=== PATIENT | female | born 1995 | race Caucasian/White ===

== ENCOUNTER 2024-02-22 13:11 | Outpatient (AMB) | payer OTHER, SELFPAY ==
--- NOTE | 2024-02-22 14:07 | MHC.OFFWIV ---
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 Patient Tobacco Use Status: Never used Tobacco Allergies Penicillins Adverse Reaction (Severe, Verified 02/22/24 14:09) Anaphylaxis Do you need a note to return to daycare/school/sports/work: Yes HPI HPI Comments History of Present Illness Details History of Present Illness - The patient is a 28-year-old female presenting with back pain. - Onset of pain approximately one week ago with worsening severity noted today. - Pain is sharp and shooting, localized to the left [id number] back, exacerbated by movement, particularly when walking or incorrect arm movement. - Pain does not radiate to the buttocks or hips - Has a history of scoliosis and previous similar severe pain attributed to a pinched nerve during adolescence. - Current self-management includes Tylenol, topical agents, and heat application with partial, temporary relief. - No prior use of naproxen and denies urinary symptoms or other systemic issues aside from back pain. - Denies loss of control of bladder or bowels Physical Exam General: Cooperative, healthy appearing, comfortable, no acute distress and well developed Orientation: Patient oriented x3 Limitations: No limitations Head: Normal to inspection Ears: Hearing grossly normal bilaterally Nose: Normal Nxternal nose present Face and sinus: ormal facial exam Eyes: Appearance normal, both eyes and all related structures Neck: Normal visual inspection and Yes full ROM Respiratory: Normal respiratory effort and able to speak in complete sentences. Skin: No rashes or lesions noted Neuro: Patient oriented x3 Extremities: Normal to inspection [facility] Social History Patient Tobacco Use Status: Never used Tobacco Review of Systems Const All systems reviewed & are unremarkable except as noted in HPI and below Physical Exam Vital Signs: Last Vital Signs Pulse 85 02/22/24 14:08 BP 122/80 02/22/24 14:08 Pulse Ox 100 02/22/24 14:08 Oxygen Delivery Method Room Air 02/22/24 14:08 BMI result Body Mass Index 30.0 General: Yes no CVA tenderness Back/Spine/Pelvis Back: no CVA tenderness and back tenderness (left sided lumbar) Cervical Spine: No Cervical spine tenderness Thoracic/Lumbar Spine: thoracic and lumbar spine normal to inspection, No mass, No thoracic spinal tenderness and No lumbar spinal tenderness Assessment & Plan Assessment & Plan (1) Low back sprain: Code(s): S33.5XXA - Sprain of ligaments of lumbar spine, initial encounter Qualifiers: Encounter type: initial encounter Qualified Code(s): S33.5XXA - Sprain of ligaments of lumbar spine, initial encounter Plan: Plan The primary intervention for the patient's acute back pain, potentially related to scoliosis, involves managing inflammation and discomfort. Naproxen 500 mg is prescribed every 12 hours to address inflammation, and cyclobenzaprine 5 mg is advised at bedtime to alleviate muscle tension, with caution regarding drowsiness during the day. The patient is encouraged to continue using topical analgesics and heat or ice for symptomatic relief. Advised to monitor the symptoms closely, consulting the primary care provider if there is no improvement or worsening in pain for further evaluation, possibly involving imaging or physical therapy. Patient was informed and verbally consented to the use of an ambient scribe for clinic note documentation during this visit. Medications: New naproxen 500 mg PO Q12H PRN 20 tabs 0RF pain cyclobenzaprine 5 mg PO Q8H PRN 10 tabs 0RF Muscle Spasm Coding Level of Care Code New Pt Level 3 (50127) Diagnoses Sprain of low back, initial encounter S33.5XXA Encounter type: initial encounter
[2024-02-22 14:08] VITALS: BP 122/80; PULSE 85; O2SAT 100
--- OUTSIDE RECORDS SUMMARY | 2024-02-22 14:45 | XMS_ITS | Data Portability ---
Author Organization [facility] EZEKI[facility], [facility] Address [address] [place] [id number] Assessment No assessment recorded. Plan of Treatment Reminders Order Date Submit Date Provider Last Modified By Organization Details Last Modified Time Details Appointments None recorded. Lab None recorded. Referral None recorded. Procedures None recorded. Surgeries None recorded. Imaging None recorded. Medication Orders cyclobenza swapna 10 mg tablet 2018 019 INTERFACE [facility], [address] [place], [address], 9 13:36:09 montelukas t 10 mg tablet 2018 019 INTERFACE [facility], [address] [place], [address], 9 13:36:10 sumatripta n 50 mg tablet 2018 019 [email or web address] [facility], [address] [place], [address], 9 13:46:48 cyclobenza swapna 10 mg tablet 2018 019 INTERFACE [facility], [address] [place], [address], 9 14:01:51 montelukas t 10 mg tablet 2018 019 INTERFACE [facility], [address] [place], [address], 9 14:01:52 cyclobenza swapna 10 mg tablet 2019 020 INTERFACE [facility], [address] [place], [address], 0 14:46:04 montelukas t 10 mg tablet 2019 020 INTERFACE [facility], [address] [place] [place], [address], 0 14:46:05 rizatripta n 10 mg disintegra ting tablet 2019 020 INTERFACE [facility], [address] [place], [address], 0 14:46:04 Patient TargetsNo targets recorded. Patient InstructionsNo instructions recorded. Reason for Referral None Reported. Problems No Known Problems Procedures Surgical History Date Name Laterality Status Provider Name and Address Organization Details Recorded Time procedure on appendix completed Gaye ROMO [facility] 08/20/2018 13:26:07 Tonsillectomy completed Gaye ROMO [facility] 08/20/2018 13:26:15 [facility] of wisdom tooth [facility] 08/20/2018 13:36:30 Imaging Results None recorded. Procedure Notes None recorded. Medical Equipment None Reported. Allergies No known drug allergies Medications Name Sig Start Date Stop Date Status Note LastModified by Organization Details LastModified Time cyclobenzap rine 10 mg tablet Take 1 tablet every day by oral route at bedtime for 30 days. 2019 active Not Available Not Available Not Avai lable azithromyci n 250 mg tablet active Not Available Not Available Not Available sumatriptan 50 mg tablet Take 1 tablet p.o. Q headache onset may repeat x1 if no response in 2 hours no more than 2 tablets a day. active Not Available Not Available No t Available levonorgest rel 0.15 mg-ethinyl estradiol 0.03 mg tablet active Not Available Not Available Not Available ondansetron 8 mg disintegrat ing tablet active Not Available Not Available N ot Available amitriptyli ne 10 mg tablet active Not Available Not Available Not Available rizatriptan 10 mg disintegrat ing tablet This all 1 tab under tongue at headache onset may repeat x1 if no response in 2 hours no more than 2 tablets per day 2019 active Not Available Not Available Not Avai lable montelukast 10 mg tablet Take 1 tablet every day by oral route at bedtime for 30 days. 2019 active Not Available Not Available Not Avai lable ergocalcife rol (vitamin D2) 1,250 mcg (50,000 unit) capsule active Not Available Not Available Not Available azelastine 137 mcg (0.1 %) nasal spray active Not Available Not Available Not Available fluticasone propionate 50 mcg/actuati on nasal spray,suspe nsion active Not Available Not Available Not Available Vitamin D 04/08 completed Not Available Not Available Not Available Excedrin Migraine as needed active Not Available Not Available N ot Available multivitami n daily active Not Available Not Available Not Available ProAir HFA 90 mcg/actuati on aerosol inhaler active Not Available Not Available Not Available [facility] Allergy 30 mg/5 mL oral suspension active Not Available Not Available N ot Available PreTAB 29 mg-1 mg tablet active Not Available Not Available Not Available Vitals Date Recorded Body height Body mass index (BMI) Body weight Heart rate Oxygen saturation Oxygen saturation in Arterial blood by Pulse oximetry Systolic blood pressure Diastolic blood pressure Provider Name and Address Organization Details Last Updated DateTime 9 165.1 cm 21.6 kg/m2 01060.0 1 g 112 /min 100 % 100 % 136 mm[Hg] 82 mm[Hg] Gaye FALCON [facility] 9 13:21:55 Date Recorded Body height Body mass index (BMI) Body weight Heart rate Respiratory rate Oxygen saturation Oxygen saturation in Arterial blood by Pulse oximetry Systolic blood pressure Diastolic blood pressure Provider Name and Address Organization Details Last Updated DateTime 9 165.1 cm 23.8 kg/m2 20627.7 1 g 113 /min 10 /min 100 % 100 % 134 mm[Hg] 88 mm[Hg] Shannan Eliud [facility] 9 13:46:28 Date Recorded Body height Body mass index (BMI) Body weight Heart rate Respiratory rate Oxygen saturation Oxygen saturation in Arterial blood by Pulse oximetry Systolic blood pressure Diastolic blood pressure Provider Name and Address Organization Details Last Updated DateTime 0 165.1 cm 26.3 kg/m2 18495.3 1 g 99 /min 10 /min 99 % 99 % 137 mm[Hg] 85 mm[Hg] Sh[facility]anmika [facility] 0 14:22:40 Social History Question Answer Notes LastModified by Organizat ion Details LastModified Time Tobacco Smoking Status Never Smoker [facility] 08/20/2018 13:25:43 Accident Related Injury No [email or web address] Information not available 04/08/2019 What Is Your Level Of Alcohol Consumption? None [email or web address] Information not available 08/20/2018 Are You Blind Or Do You Have Difficulty Seeing? No Information not available 04/08/2019 How Much Tobacco Do You Chew? None [email or web address] Information not available 08/20/2018 Are You Currently Employed? No [email or web address] Information not available 08/20/2018 Are You Deaf Or Do You Have Serious Difficulty Hearing? No [email or web address] Information not available 04/08/2019 Do You Or Have You Ever Used E-cigarettes Or Vape? Never Used Electronic Cigarettes [email or web address] Information not available 04/08/2019 Education 2 Year College Informatio n not available 08/20/2018 Which Of Your Hands Is Dominant? Right Information not available 04/08/2019 Live Alone Or With Others? With Others [email or web address] Information not available 08/20/2018 What Was The Date Of Your Most Recent Tobacco Screening? 08/20/2018 Information not available 09/12/2018 How Many Children Do You Have? 0 [email or web address] Information not available 08/20/2018 At What Age Did You Start Smoking Tobacco? 0 [email or web address] Information not available 04/08/2019 Do You Or Have You Ever Used Smokeless Tobacco? Never Used Smokeless Tobacco [email or web address] Information not available 04/08/2019 How Many Years Have You Smoked Tobacco? 0 [email or web address] Information not available 04/08/2019 Sex: Unknown Functional Status Question Answer Note LastModified by Organization D etails LastModified Time Do you have difficulty walking or climbing stairs? No [email or web address] Information not available 04/08/2019 Do you have difficulty doing errands alone? No [email or web address] Information not available 04/08/2019 Are you able to care for yourself? Yes Information n ot available 08/20/2018 Do you have difficulty dressing or bathing? No [email or web address] Information not available 04/08/2019 Mental Status Question Answer Note LastModified by Organization D etails LastModified Time Do you have difficulty concentrating, remembering or making decisions? No [email or web address] Information no t available 04/08/2019 Family History Relationship Description Onset Age of this Age Resolved Age Notes LastModified by Organization Details LastModified Time Mother History of hypertension [email or web address] Not available 03/2018 13:24:15 Mother Family history of stroke [email or web address] Not available 2018 13:25:05 Maternal Grandmother Family history of malignant neoplasm [email or web address] Not available 2018 13:24:33 Maternal Grandfather Diabetes mellitus [email or web address] Not available 2018 13:24:51 Brother Migraine [email or web address] Not availab le 08/20/2018 13:25:18 Medical History Condition Response Headaches/Migraines Y Gynecological HistoryNo gynecological history recorded. Obstetrics History GPAL:G 0 P 0 0 0 0 Past Encounters Encounter ID Performer Location Encounter Start Date Encounter Closed Date Diagnosis/Indication Diagnosis SNOMED-CT Code Diagnosis ICD10 Code [id number] [facility] [address] [place] [id number] 08/20/2018 13:08:57 08/20/2018 14:08:16 Migraine variants 267999811 G43.809 [id number] MD [facility] [address] [place] [id number] 1 10/08/2018 13:32:24 10/08/2018 14:00:26 Migraine variants [id number] G43.809 [id number] MD [facility] [address] [place] [address] [place] [address] 04/08/2019 14:08:38 04/08/2019 16:26:52 Migraine variants [id number] G43.809 Health Concerns Section Related Observation LastModified by Organization Detai ls LastModified Time None Recorded Concern Status LastModified by Organization Details LastModified Time None Recorded Advance Directives Directive None Recorded Payers Encounter Date Sequence Insurance Name Policy Number Policy Harry Covered Member ID Harry Member ID Guarantor Name 08/20/2018 1 [place] - DOS PRIOR TO 2024 - [employer] () Milly Gillian [id number] Milly Gillian 10/08/2018 1 [employer] - DOS PRIOR TO 2024 - [employer] () Milly Gillian [id number] Milly Gillian 04/08/2019 1 [place] - DOS PRIOR TO 2024 - [employer] () Milly Gillian [id number] Milly Gillian Notes Date Note Type Note Provider Name and Address Organization Details Recorded Time 08/20/2018 text/html Patient is a lucila y pleasant 22-year-old right-handed woman with history of vitamin-D deficiency and migraines presents for evaluation. Patient had migraine headaches which started about 2-3 years ago. They went through appear to remission for 1-2 years and recently 2 months ago they became more apparent. Her typical headache as a right eye periorbital stabbing headache which begins with a pressure headache and visual abnormalities. It can last up to 24 hours and associated with unilateral photophobia phonophobia and avoidance of activity. She was recently placed on amitriptyline 10 at night which decreased the headache frequency from every other day to 2-3 times weekly. She has never been tried on Imitrex therapy for abortivetherapy. She does not plan to become and she is on oral contraceptive tablets. SERVANDO QUEZADA MD [address] [place], [address], [facility] 08/20/2018 13:40:05 10/08/2018 text/html Since last visit the patient has improved in regard to her cluster variant migraines. She was down to 2 headaches over the past 6 weeks but ran out of her medications 5 days due to a pharmacy issue. After 5 days she had a severe headache and had to restart the medications. She had an adverse event of sumatriptan where she developed significant anxiety or chest tightness. We discussed these issues.14 point review of system was performed and all negative except which was described in HPI. SERVANDO QUEZADA MD [address] [place], [address], [facility] 10/08/2018 14:02:07 04/08/2019 text/html Patient since [facility] visit has noted improvement in the frequency still at 2-3 times monthly. This is better than 2-3 times weekly. Unfortunately when she has the headache it causes severe discomfort and is incapacitating. As result we talked about focusing on abortive therapy. Patient does not plan become .14 point review of system was performed and all negative except which was described in HPI. SERVANDO QUEZADA MD [address] [place], [address], [facility] 04/08/2019 15:44:05 OBGyn Episode No OBEpisode recorded.
== END 2024-02-22 14:19 | disposition home or self-care (01) ==
PROVIDERS: Visit Provider Physician Assistant
DX: S33.5XXA Sprain of ligaments of lumbar spine, initial encounter (principal)

== ENCOUNTER → 2024-02-22 13:11 | Outpatient (BNVA) | payer OTHER, SELFPAY | PROVIDERS: Visit Provider Physician Assistant | DX: S33.5XXA Sprain of ligaments of lumbar spine, initial encounter (principal) | CPT/HCPCS: 99202 ==

== ENCOUNTER 2024-03-03 07:14 | Inpatient (IN) | payer OTHER, SELFPAY ==
--- OUTSIDE RECORDS SUMMARY | 2024-03-03 07:17 | XMS_ITS | Data Portability ---
Author Organization [facility] Address [address] [place] [id number] Assessment No assessment recorded. Plan of Treatment Reminders Order Date Submit Date Provider Last Modified By Organization Details Last Modified Time Details Appointments None recorded. Lab None recorded. Referral None recorded. Procedures None recorded. Surgeries None recorded. Imaging None recorded. Medication Orders cyclobenza swapna 10 mg tablet 2018 019 INTERFACE [facility], [address] [place], [address], 9 13:36:09 montelukas t 10 mg tablet 2018 019 INTERFACE [facility], [address] [place], [address], 9 13:36:10 sumatripta n 50 mg tablet 2018 019 [facility], [address] [place], [address], 9 13:46:48 cyclobenza swapna 10 mg tablet 2018 019 INTERFACE [facility], [address] [place], [address], 9 14:01:51 montelukas t 10 mg tablet 2018 019 INTERFACE [facility], [address] [place], [address], 9 14:01:52 cyclobenza swapna 10 mg tablet 2019 020 INTERFACE [facility], [address] [place] [place], [address], 0 14:46:04 montelukas t 10 mg tablet 2019 020 INTERFACE [facility], [address] [place] [place], [address], 0 14:46:05 rizatripta n 10 mg disintegra ting tablet 2019 020 INTERFACE [facility], [address] [place], [address], 0 14:46:04 Patient TargetsNo targets recorded. Patient InstructionsNo instructions recorded. Reason for Referral None Reported. Problems No Known Problems Procedures Surgical History Date Name Laterality Status Provider Name and Address Organization Details Recorded Time procedure on appendix completed Gaye ROMO [facility]ZE[facility] 08/20/2018 13:26:07 Tonsillectomy completed Gaye ROMO [facility] 08/20/2018 13:26:15 extraction of wisdom tooth [facility] 08/20/2018 13:36:30 Imaging Results [...] Updated DateTime 9 165.1 cm 21.6 kg/m2 07012.0 1 g 112 /min 100 % 100 % 136 mm[Hg] 82 mm[Hg] Gaye FALCON [facility] 9 13:21:55 Date Recorded Body height Body mass index (BMI) Body weight Heart rate Respiratory rate Oxygen saturation Oxygen saturation in Arterial blood by Pulse oximetry Systolic blood pressure Diastolic blood pressure Provider Name and Address Organization Details Last Updated DateTime 9 165.1 cm 23.8 kg/m2 59159.7 1 g 113 /min 10 /min 100 [...] Updated DateTime 0 165.1 cm 26.3 kg/m2 30621.3 1 g 99 /min 10 /min 99 % 99 % 137 mm[Hg] 85 mm[Hg] Shann[facility]ika [facility] 0 14:22:40 Social History Question Answer Notes LastModified by Organizat ion Details LastModified Time Tobacco Smoking Status Never Smoker [facility] 08/20/2018 13:25:43 Accident Related Injury No [email or web address] Information not available 04/08/2019 What Is Your Level Of Alcohol Consumption? None [email or web address] Information not available 08/20/2018 Are You Blind Or Do You Have Difficulty Seeing? No Information not available 04/08/2019 How Much Tobacco Do You Chew? None [email or web address] Information not available 08/20/2018 Are You Currently Employed? No [email or web address] Information not available 08/20/2018 Are You Deaf Or Do You Have Serious Difficulty Hearing? No [email or web address] Information not available 04/08/2019 Do You Or Have You Ever Used E-cigarettes Or Vape? Never Used Electronic Cigarettes [email or web address] Information not available 04/08/2019 Education 2 Year College [email or web address] Informatio n not available 08/20/2018 Which Of Your Hands Is Dominant? Right [email or web address] Information not available 04/08/2019 Live Alone Or With Others? With Others [email or web address] Information not available 08/20/2018 What Was The Date Of Your Most Recent Tobacco Screening? 08/20/2018 Information not available 09/12/2018 How Many Children Do You Have? 0 [email or web address] Information not available 08/20/2018 At What Age Did You Start Smoking Tobacco? 0 [email or web address] Information not available 04/08/2019 Do You Or Have You Ever Used Smokeless Tobacco? Never Used Smokeless Tobacco [email or web address] Information not available 04/08/2019 How Many Years Have You Smoked Tobacco? 0 Information not available 04/08/2019 Sex: Unknown Functional Status Question Answer Note LastModified by Organization D etails LastModified Time Do you have difficulty walking or climbing stairs? No [email or web address] Information not available 04/08/2019 Do you have difficulty doing errands alone? No [email or web address] Information not available 04/08/2019 Are you able to care for yourself? Yes Information n ot available 08/20/2018 Do you have difficulty dressing or bathing? No Information not available 04/08/2019 Mental Status Question Answer Note LastModified by Organization D etails LastModified Time Do you have difficulty concentrating, remembering or making decisions? No [email or web address] Information no t available 04/08/2019 Family History Relationship Description Onset Age of this Age Resolved Age Notes LastModified by Organization Details LastModified Time Mother History of hypertension [email or web address] Not available 03/2018 13:24:15 Mother Family history of stroke [email or web address] Not available 2018 13:25:05 Maternal Grandmother Family history of malignant neoplasm [email or web address] Not available 2018 13:24:33 Maternal Grandfather Diabetes mellitus [email or web address] Not available 2018 13:24:51 Brother Migraine [email or web address] Not availab le 08/20/2018 13:25:18 Medical History Condition Response Headaches/Migraines Y Gynecological HistoryNo gynecological history recorded. Obstetrics History GPAL:G 0 P 0 0 0 0 Past Encounters Encounter ID Performer Location Encounter Start Date Encounter Closed Date Diagnosis/Indication Diagnosis SNOMED-CT Code Diagnosis ICD10 Code Diagnosis Note [id number] MD [facility] [address] [id number] 08/20/2018 13:08:57 08/20/2018 14:08:16 Migraine variants [id number] G43.809 Patient is a very pleasant 22-year-ol d right-hand ed woman with history of vitamin-D deficiency and migraines presents for evaluation . The patient appears to have cluster variant migraines. There has been an increase in intensity over the past 2 months. We discussed the pathophysi ology of migraines. At this juncture we will stop amitriptyl ine due to his associatio n with weight gain and start cyclobenza swapna and Singulair at night for prophylaxi s. For abortive therapy will start sumatripta n. Side effects discussed. We will see the patient back in 6 weeks and if there is not a therapeuti c response she will need neuro imaging. This was discussed with the patient as well as her who accompanie d her. 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 The patient appears to have cluster variant migraines. There has been an increase in intensity over the past 2 months. Since last visit the patient has had a positive therapeuti c response and is doing much better with a combinatio n of Singulair and cyclobenza swapna. She is to maintain these medication s for about 6 weeks when she is headache-f ree she can attempt to stop 1. She should wait 2 weeks and if no increased frequency of migraines and stop the other 1. She should follow up in 6 months but she is totally improved she can cancel that appointmen t. 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 The patient appears to have cluster variant migraines. There has been an increase in intensity over the past 2 months. Since last visit the patient has had a positive therapeuti c response and is doing much better with a combinatio n of Singulair and cyclobenza swapna. She is down to 3 2-3 headaches a month however they are debilitati ng. Sumatripta n cause severe vaso constricti on therefore will try rizatripta n and give her some samples of the new abortive calcitonin gene related peptide hormone as well as Cambia. We will see her back in 6 months. Health Concerns Section Related Observation LastModified by Organization Detai ls LastModified Time None Recorded Concern Status LastModified by Organization Details LastModified Time None Recorded Advance Directives Directive None Recorded Payers Encounter Date Sequence Insurance Name Policy Number Policy Harry Covered Member ID Harry Member ID Guarantor Name 08/20/2018 1 [place] - DOS PRIOR TO 2024 - [employer] () Milly Gillian [id number] Milly Gillian 10/08/2018 1 [employer] - DOS PRIOR TO 2024 - [employer] () Milly Gillian [id number] Milly Gillian 04/08/2019 1 [place] - DOS PRIOR TO 2024 - [employer] () Milly Gillian [id number] Milly Gillian Notes Date Note Type Note [...] oral contraceptive tablets. SERVANDO QUEZADA MD [address] [place], [address], [facility] 08/20/2018 13:40:05 10/08/2018 text/html [...] was described in [place] [address] [place] [address], [phone], [facility] 10/08/2018 14:02:07 04/08/2019 text/html [facility] has noted improvement in the frequency [...] described in HPI. SERVANDO QUEZADA MD [address] [place], [address], [facility] 04/08/2019 15:44:05 OBGyn Episode No OBEpisode recorded.
[2024-03-03 07:18] VITALS: BP 124/88; PULSE 109; RESP 18; TEMP 36.6; O2SAT 97; BMI 26.6
--- NOTE | 2024-03-03 07:58 | ED.PSYCH ---
HPI - Psych General Chief Complaint: Psychiatric Symptoms Stated Complaint: not having good thoughts Time Seen by Provider: 03/03/24 07:34 Source: patient, RN notes reviewed and old records reviewed Mode of arrival: ambulatory History of Present Illness ED Provider: Cecelia Field PA-C HPI Narrative: 28-year-old female no significant past medical history presenting to the ED complaining of increasing depression with suicidal ideations without plan since last night. States she got into an argument with her and did not sleep all night and had thoughts of just going away and them being better off without her. States she also found herself saying goodbye to her cats. States there was ETOH involved last night however denies being daily drinker or illicit substance use. Denies auditory or visual hallucinations, injury/fall or trauma, change in medications last prescriptions. Related Data Home Medications ?Medication ?Instructions ?Recorded ?Confirmed No Known Home Meds 03/03/24 03/03/24 Allergies Allergy/AdvReac Type Severity Reaction Status Date / Time Penicillins AdvReac Severe Anaphylaxis Verified 03/03/24 07:19 Review of Systems Review of Systems: Yes all other systems are reviewed and are negative Constitutional: Constitutional: Reports as per HPI [facility] Past Medical History Attestation statement: The following information was validated with the patient. Source: old records reviewed Social History Social History Patient Tobacco Use Status: Never used Tobacco Smoked in Last 30 Days: No Use of substances other than those prescribed or required for medical reasons: No Advance Directives: No Advance Directives Information Provided: Yes Do you have a plan to hurt others: No Plan Physical Exam Vital Signs: Vital Signs: Last Vital Signs Temp 97.9 F 03/03/24 07:18 Pulse 109 H 03/03/24 07:18 Resp 18 03/03/24 07:18 BP 124/88 03/03/24 07:18 Pulse Ox 97 03/03/24 07:18 O2 Del Method Room Air 03/03/24 07:18 BMI result Body Mass Index 26.6 Const: General: cooperative, healthy appearing and no acute distress Orientation/consciousness: patient oriented x3 Limitations: no limitations HEENT: Head: Yes normal to inspection and Yes atraumatic Ears: hearing grossly normal bilaterally General nose exam: Normal external nose present Face and sinus: Yes normal facial exam Eyes: General: appearance normal, both eyes and all related structures EOM: EOMs intact bilaterally Neck: Neck: Yes normal visual inspection and Yes no meningeal signs Resp: Effort & Inspection: normal respiratory effort and no respiratory distress Auscultation: clear to auscultation bilaterally Cardio: Rate: regular rate Heart sounds: S1 normal heart sound present and S2 normal heart sound present Skin: Rashes: no rashes Wounds: no wounds Neuro: General: patient oriented x3, tone normal and no meningeal signs Cranial nerves: Yes CN's II-XII intact bilaterally Gait exam (Neuro): Normal gait present Extrem: General: Yes normal to inspection Psych: Other: tearful Affect: Sad affect present Attitude: cooperative Thought content: Suicidality present, no homicidality, no hallucinations and Depressive thoughts present Course Course Course Narrative: -labs reassuring > patient was evaluated by CARE team in his known inpatient bed search. Section 12 filled out. Physician observation initiated at 09:24 Medications Administered Discontinued Medications Generic Name Dose Route Start Last Admin Trade Name Monse PRN Reason Stop Dose Admin Lorazepam 1 mg 03/03/24 08:10 03/03/24 08:25 Lorazepam 1 Mg Tablet PO 03/03/24 08:11 1 mg ONCE ONE Administration Medical Decision Making Medical Decision Making [facility] Narrative: 28-year-old female no significant past medical history presenting to the ED complaining of increasing depression with suicidal ideations without plan since last night. States she got into an argument with her and did not sleep all night and had thoughts of just going away and them being better off without her. On exam tachycardic, tearful, sad, suicidal/depressed without plan. Denies HI. Lower suspicion for organic causes. Plan: Labs, tox screen, CARE team consult Please refer to course for remaining clinical decision making, interpretation of labs/imaging results, and discussions with consultants and/or family members. Differential Diagnosis Differential Diagnoses: The differential diagnosis associated with the presentation includes As above Admission/Observation Consideration of admission/observation: Escalation of care including admission/observation considered Consult Healthcare Provider Management of the patient was discussed with: Behavioral Health Provider Lab Data [facility] Lab Attestation statement: I reviewed the patient's lab results. 03/03/24 07:58 03/03/24 07:58 Labs: Lab Results 01/13/25 01/13/25 Range/Units 07:58 11:38 WBC 7.8 (4.8-10.8) X10*3/uL RBC 5.16 (4.20-5.50) X10*6/uL Hgb 15.4 (12.0-16.0) g/dl Hct 44.3 (37.0-47.0) % MCV 85.9 (80.0-98.0) fL MCH 29.8 (27.0-33.0) pg MCHC 34.8 (31.0-35.0) g/dl RDW 13.2 (11.0-16.0) % Plt Count 212 (160-400) X10*3/uL MPV 11.1 (9.4-12.3) fL Immature Gran % (Auto) 0.4 (0.0-0.4) % Neut % (Auto) 66.6 (45-73) % Lymph % (Auto) 25.5 (20-40) % Ness % (Auto) 5.9 (2-11) % Eos % (Auto) 1.2 (0-4) % Baso % (Auto) 0.4 (0-2) % Lymph # (Auto) 2.0 (1.2-4.9) X10*3/uL Ness # (Auto) 0.5 (0.1-1.2) X10*3/uL Eos # (Auto) 0.1 (0.0-0.4) X10*3/uL Baso # (Auto) 0.0 (0.0-0.2) X10*3/uL Abs Immat Gran (auto) 0.03 (0.00-0.03) X10*3/uL Absolute Neuts (auto) 5.2 (2.0-8.3) x10*3/uL Absolute Nucleated RBC 0.000 (0.0-0.012) X10*3/uL Nucleated RBC % (auto) 0.0 (0.0-0.2) /100WBC Smear Tech's Comments VERIFIED Sodium 143 (135-145) mmol/L Potassium 4.0 (3.3-5.1) mmol/L Chloride 110 H (96-108) mmol/L Carbon Dioxide 23 (22-29) mmol/L Anion Gap 14 (12-20) BUN 14 (9-16) mg/dL Creatinine 0.72 (0.5-1.4) mg/dL Estim Creat Clear Calc 117.1 Estimated GFR > 60 Random Glucose 94 (60-115) mg/dL Calcium 9.4 (8.4-10.2) mg/dL Total Bilirubin 0.3 (0.0-1.0) mg/dL AST 22 (5-31) U/L ALT 26 (0-31) U/L Alkaline Phosphatase 96 (39-117) U/L Total Protein 7.7 (6.5-8.0) g/dL Albumin 4.8 (3.5-5.0) g/dL Beta HCG, Quant < 2 mIU/mL Urine Color Yellow Urine Appearance Cloudy Urine pH 7.0 (5.0-9.0) Ur Specific Meally 1.020 (1.005-1.025) Urine Protein Negative (Neg-Trace) mg/dL Urine Glucose (UA) Negative (Negative) mg/dL Urine Ketones Trace (Negative) mg/dL Urine Blood Negative (Negative) Urine Nitrite Positive H (Negative) Ur Leukocyte Esterase Small (1+) H (Negative) Urine RBC 0-2 (0-2) /HPF Urine WBC 21-50 H (0-5) /HPF Ur Squamous Epith Cells 6-10 (0-2) /HPF Urine Bacteria 4+ (None Seen) Hyaline Casts 3-5 (0-2) /LPF Urine Test NEGATIVE (NEGATIVE) Salicylates < 5.0 L (15-30) mg/dL Urine Opiates Screen Not Detected (Not Detect) Ur Buprenorphine Scrn Not Detected (Not Detect) ng/mL Ur Oxycodone Screen Not Detected (Not Detect) ng/mL Urine Methadone Screen Not Detected (Not Detect) ng/mL Urine Fentanyl Screen Not Detected (Not Detect) Acetaminophen < 3 (<30) mcg/mL Ur Barbiturates Screen Not Detected (Not Detect) Ur Phencyclidine Scrn Not Detected (Not Detect) Ur Amphetamines Screen Not Detected (Not Detect) U Benzodiazepines Scrn Not Detected (Not Detect) Urine Cocaine Screen Not Detected (Not Detect) U Marijuana (THC) Screen Not Detected (Not Detect) Radiology Impression Discussion of test interpretation with radiology: I have reviewed the radiologist's reading. External Record Review External record reviewed: Inpatient record, Office record, Outpatient record, Prior outpatient labs, Prior outpatient radiology, Primary care record and Outside ED record Tests considered The following testing was considered but not selected: As above Chronic Conditions Patient?s care impacted by: Other Social Determinants Patient?s care significantly limited by Social Determinants of Health including: Other Social Determinant of Health Discharge Plan Discharge Clinical Impression: Suicidal ideation Patient Disposition: Still a Patient Interventions: [place]-Suicide Risk Severity Scale Last Done: 03/03/24 07:22
[2024-03-03 08:19] LABS: Acetaminophen LAB < 3 mcg/mL (<30); Salicylate < 5.0 mg/dL (15-30)
[2024-03-03 08:23] LABS: Alanine Aminotransferase 26 U/L (0-31); Albumin Level 4.8 g/dL (3.5-5.0); Alkaline Phosphatase 96 U/L (39-117); Anion Gap 14 (12-20); Aspartate Amino Transferase 22 U/L (5-31); Bilirubin Total 0.3 mg/dL (0.0-1.0); Blood Urea Nitrogen 14 mg/dL (9-16); Calcium 9.4 mg/dL (8.4-10.2); Carbon Dioxide 23 mmol/L (22-29); Chloride 110 mmol/L (96-108); Creatinine Clr Calc Pharmacy 117.1; Estimated Glomerular Filt Rate > 60; Glucose Random 94 mg/dL (60-115); Sodium 143 mmol/L (135-145); Total Protein 7.7 g/dL (6.5-8.0)
[2024-03-03] MEDS: LORazepam 1 MG TABLET PO (08:25)
[2024-03-03 08:26] LABS: HCG Quantitative < 2 mIU/mL
[2024-03-03 08:47] LABS: Basophils Percent Auto 0.4 % (0-2); Eosinophils Absolute Auto 0.1 X10*3/uL (0.0-0.4); Eosinophils Percent Auto 1.2 % (0-4); Hematocrit 44.3 % (37.0-47.0); Hemoglobin 15.4 g/dl (12.0-16.0); Imm Gran Abs Auto 0.03 X10*3/uL (0.00-0.03); Imm Gran Pct Auto 0.4 % (0.0-0.4); Lymphocytes Percent Auto 25.5 % (20-40); MANUAL DIFF FLAG SCAN; Mean Corpuscular HGB Conc 34.8 g/dl (31.0-35.0); Mean Corpuscular Hemoglobin 29.8 pg (27.0-33.0); Mean Corpuscular Volume 85.9 fL (80.0-98.0); Monocytes Absolute Auto 0.5 X10*3/uL (0.1-1.2); Monocytes Percent Auto 5.9 % (2-11); Neutrophils Absolute Auto 5.2 x10*3/uL (2.0-8.3); Neutrophils Percent Auto 66.6 % (45-73); PLT CLUMP 1; Red Blood Count 5.16 X10*6/uL (4.20-5.50); Red Cell Distribution Width 13.2 % (11.0-16.0); SCAN SMEAR FLAG 1
[2024-03-03 09:22] LABS: Mean Platelet Volume 11.1 fL (9.4-12.3); Platelet Count 212 X10*3/uL (160-400); White Blood Count 7.8 X10*3/uL (4.8-10.8)
[2024-03-03 09:23] LABS: SLIDE REVIEW VERIFIED
--- NOTE | 2024-03-03 09:30 | MHC.CARE ---
Pt meets the criteria for IPLOC secondary to endorsing SI and feeling unsafe to return home at this time. Section 12a in chart. Provider in agreement.
[2024-03-03 11:54] LABS: Appearance Urine Cloudy; Color Urine Yellow; Glucose Urine UA Negative (Negative); Leukocyte Esterase Urine Small (1+) (Negative); Nitrite Urine Positive (Negative); UMIC TRIGGER UACC YES; Urine Blood Negative (Negative); Urine Ketones Trace mg/dL (Negative); Urine Protein Negative (Neg-Trace)
[2024-03-03 11:56] LABS: UPreg QC Valid YES; Urine Pregnancy NEGATIVE (NEGATIVE)
--- NOTE | 2024-03-03 11:56 | PC.NURSE ---
pt reports that she does not take any medications at home
[2024-03-03 12:03] LABS: Amphetamine Screen Urine Not Detected (Not Detect); Barbiturates, Urine Not Detected (Not Detect); Benzodiazepines Screen Urine Not Detected (Not Detect); Buprenorphine Scr Not Detected (Not Detect); Cannabinoid Screen Urine Not Detected (Not Detect); Cocaine Screen Urine Not Detected (Not Detect); Fentanyl, urine Not Detected (Not Detect); Methadone Screen, Urine Not Detected (Not Detect); Opiate Screen Urine Not Detected (Not Detect); Oxycodone Screen Urine Not Detected (Not Detect); Phencyclidine Screen Urine Not Detected (Not Detect)
[2024-03-03 12:04] LABS: Bacteria Urine 4+ (None Seen); RBC Urine 0-2 /HPF (0-2); UACC Culture Trigger YES; WBC Urine 21-50 /HPF (0-5)
--- NOTE | 2024-03-03 15:55 | PHA.MEDREC ---
Addendum entered by Larry Rai 03/03/24 16:39: reviewed Original Note: Pharmacy Consult ? Medication Reconciliation Pharmacy reviewed med rec done by nursing. I spoke with patients nurse and she confirmed the patient states she has not been taking any medications.
[2024-03-03 17:10] VITALS: BP 104/70; PULSE 100; RESP 16; TEMP 36.6; O2SAT 100
[2024-03-03 17:44] VITALS: BMI 26.8
--- NOTE | 2024-03-03 18:15 | PC.ADMIT ---
Milly arrived via wheelchair from [facility] ED pod. She is alert and oriented x4. Milly was cooperative with skin/safety check, skin check is unremarkable. She is appropriately tearful when talking about what brought her here. Her is active and in 04/2023 they were moved from [place] to [place]. They are in base housing, and have no family or friends nearby. Her did not get a pay adjustment for moving [place]. She has been working fulltime in a job that I hate to make ends barely meet. , Its like I have been treading water for a while but now its splashing on my face making it difficult to breathe. I just woke up this morning and didnt want to go to work and just didnt want to deal with anything anymore. So my and I came here She has no medical issues other than a back strain of unknown origin in the last month for which she is taking naprosyn prn. She states she feels safe in her relationship. She doesnt smoke or drink, her toxicology screen was negative. She declines the flu vaccine. Milly denies urges to harm self or others and any visual or perceptual disturbances. She is on a 12B signed by Anali Weiss NP. She was placed on 15 minute safety checks.
[2024-03-03] MEDS: Acetaminophen 325 MG TABLET 650 MG PO (20:42)
--- NOTE | 2024-03-03 23:02 | PC.NURSE ---
This patient is struggling with multiple life stressors. Milly talked about how she and her have recently moved from [place] to [place]. She was born in [place] and her is from [place]. They are having financial struggles related to the costs of living in [place] versus their previous home in [place], and their recent move. She also lacks a social yurok and support due to the move, having no friends or family (outside of her ) in the area. She reports being depressed and anxious because of these multiple recent stressors.
[2024-03-04 09:24] VITALS: BP 126/83; PULSE 95; RESP 16; TEMP 36.2; O2SAT 99
--- NOTE | 2024-03-04 17:25 | P.DS_ITS ---
DS: Providers Provider Date of Service: 03/04/24 Date of admission: 03/03/24 15:07 Date of discharge: 03/04/24 Primary care physician: Unknown Physician Admitting clinician: Milagro Ward Attending physician on admission: Guillermo Gonzalez Attending physician on discharge: Guillermo Gonzalez Discharging clinician: Milagro Ward DS: Diagnosis Discharge Diagnosis (1) Anxiety: Status: Acute (2) Mixed emotional features as adjustment reaction: Status: Acute DS: Medications Discharge Medications Home Medications: Home Medications ?Medication ?Instructions ?Recorded ?Confirmed No Known Home Meds 03/03/24 03/03/24 Mental Status Exam Mental Status Exam Patient Appearance: Appropriate Patient Orientation: Person, Place, Time and Situation Level of Consciousness: Alert Patient Behavior: Appropriate, Talkative, Cooperative, Anxious and Good Eye Contact Mood Description: Anxious and Apprehensive Affect Description: Anxious and Apprehensive Patient Cognition Impaired: No Ability to Follow Directions: Good Speech Pattern: Spontaneous Speech Memory Description: Intact Hallucinations: None Delusions: Not Present Thought Process: Intact and Goal Oriented Thought Content: positive for Intact, positive for Goal Oriented and positive for Suicidal Ideation (denies) Depressive Symptoms: Thoughts of /Suicide (denies) Judgement: Good Data Data Completed and Pending Completed studies during hospitalization [Text1]: 03/03/24 03/03/24 07:58 11:38 WBC 7.8 RBC 5.16 Hgb 15.4 Hct 44.3 MCV 85.9 MCH 29.8 MCHC 34.8 RDW 13.2 Plt Count 212 MPV 11.1 Immature Gran % (Auto) 0.4 Neut % (Auto) 66.6 Lymph % (Auto) 25.5 [place] % (Auto) 5.9 Eos % (Auto) 1.2 Baso % (Auto) 0.4 Lymph # (Auto) 2.0 [place] # (Auto) 0.5 Eos # (Auto) 0.1 Baso # (Auto) 0.0 Abs Immat Gran (auto) 0.03 Absolute Neuts (auto) 5.2 Absolute Nucleated RBC 0.000 Nucleated RBC % (auto) 0.0 Smear Tech's Comments VERIFIED Sodium 143 Potassium 4.0 Chloride 110 H Carbon Dioxide 23 Anion Gap 14 BUN 14 Creatinine 0.72 Estim Creat Clear Calc 117.1 Estimated GFR > 60 Random Glucose 94 Calcium 9.4 Total Bilirubin 0.3 AST 22 ALT 26 Alkaline Phosphatase 96 Total Protein 7.7 Albumin 4.8 Beta HCG, Quant < 2 Urine Color Yellow Urine Appearance Cloudy Urine pH 7.0 Ur Specific [place] 1.020 Urine Protein Negative Urine Glucose (UA) Negative Urine Ketones Trace Urine Blood Negative Urine Nitrite Positive H Ur Leukocyte Esterase Small (1+) H Urine RBC 0-2 Urine WBC 21-50 H Ur Squamous Epith Cells 6-10 Urine Bacteria 4+ Hyaline Casts 3-5 Urine Test NEGATIVE Salicylates < 5.0 L Urine Opiates Screen Not Detected Ur Buprenorphine Scrn Not Detected Ur Oxycodone Screen Not Detected Urine Methadone Screen Not Detected Urine Fentanyl Screen Not Detected Acetaminophen < 3 Ur Barbiturates Screen Not Detected Ur Phencyclidine Scrn Not Detected Ur Amphetamines Screen Not Detected U Benzodiazepines Scrn Not Detected Urine Cocaine Screen Not Detected U Marijuana (THC) Screen Not Detected 03/03/24 Unknown Urine clean catch - Clean Catch Midstream Urine Culture - Preliminary Gram negative carmelo DS: Summary Hospital Course Hospital Course: Admission to adult psychiatry for exacerbation of anxiety and mixed adjustment reaction. Per crisis, pt indicated SI. Per pt and she did not indicate SI, just wanting to secure therapy as she had not been able to do this via her insurance since moving to [place] in April 2023. Referral resources were identified for pt. Appointments were scheduled. Pt plans to return home with her . Denies SI/HI/AH/VH. No sx of acute jason or psychosis Status at Discharge Functional status at discharge: independent ambulation Overall status at discharge: patient is back to baseline Time Spent with Patient Time attestation: Total time managing care of this patient today ____ minutes. Time spent: Greater than 30 minutes Discharge Plan Discharge Anticipated Discharge Date/Time: 03/04/24 14:00 Patient Disposition: Home, Self-Care Discharge Diagnosis: Mixed adjustment reaction with anxiety Referrals: [facility] [Other] - 03/10/24 2:00 pm (Hospital discharge appointment for individual therapy Appointment by tele-health with therapist at [facility] Complete intake paperwork prior to appointment it will be in your email. ) Physician,Unknown J [Primary Care Provider] - 1 Week Brenda Amaro APRN [Nurse Practitioner] - 03/25/24 1:00 pm (Bridge appointment) Discharge Medications: No Action No Known Home Meds Discharge Orders: Discharge Order (Routine); Ordered 03/04/24 Ordered By: Milagro Ward Diet: Advance to usual diet Activity on Discharge: As tolerated Stand Alone Forms: Patient Portal Discharge page, Community Support Print Language: Senegalese Care Plan Goals: Mood and Behavioral Stabilization Health Concerns: Mood and Behavioral Stabilization Plan of Treatment: Attend scheduled appointments Call/Return as needed Assessment: No SI,HI,AH,VH No sx of acute jason, psychosis Pt declines medications at this time. Pt asks for out pt referrals, BRIDGE referral made and out pt referrals are initiated. Discharge Date/Time: 03/04/24 13:08
--- NOTE | 2024-03-04 17:25 | P.HPPS_ITS ---
HPI Date of Service: 03/04/24 Chief Complaint: depression, SI Sources of Information: patient interviewed, chart reviewed and crisis/core team assessment reviewed Additional Sources of Information: - Pt- HPI Subjective Notes: Elizalde Warning and Section 12B Healthcare Proxy: No Guardianship: No Medical Problems Affecting Mental Status: No Narrative: 28 yo female, self presented with her . Team reports she reported SI with no plan but having bad thoughts. 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 They have been in [place] since April 2023 and have been struggling financially as the cost of living in [place] is much higher than when they lived in [place]. Reports relationship difficulties as well and sx of panic. Tells crisis she began to say goodbye to her cat and had thoughts of getting in her car and leaving and doing something. Reports high anxiety and panic sx, SI with no plan. Met with pt and with pt and . Pt was very upset on admission, stating, they told me I would meet a counselor and get set up for therapy and go home. Pt/ deny current safety issues. Review of crisis report with both and both deny this information to be accurate. Pt reports she has been for 6 years, they are at [place] with their cat, Potato. They were in [place] for a time (pt's home state), [facility] for [facility] years, now [place] Past Psychiatric History: IP: No hx OP: No hx, attempting to find a provider with without result SA: OD ~7 years ago- I would never do that again, ever . Denies thoughts of making an attempt. Reports no med hx and no real interest as mom is on medicine and had a severe adverse response to meds with hostility. Medical Evaluation Reviewed: Yes [facility] Medical History (Updated 03/06/24 @ 16:06 by Milagro Ward APRN) Anxiety Family History: Mom-mood disorder, depression Brother-PTSD from [place] ( service) Social History: Born in [place]. Raised by both parents 3 older brothers who are with children, lving in [place], [place], [place]. Two are former enrolled Childhood was good, very supportive family. 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 Has an [employer] business--[employer] History: Denies Trauma History: Denies Diagnostics Vital Signs (24Hr): Vital Signs - 24 hr 03/04/24 09:24 Temperature 97.1 F Pulse Rate 95 Respiratory Rate 16 Blood Pressure 126/83 Pulse Oximetry 99 Oxygen Delivery Method Room Air BMI result Body Mass Index 26.8 Labs 03/03/24 07:58 03/03/24 07:58 Labs: Laboratory Results - last 48 hr 03/03/24 03/03/24 07:58 11:38 WBC 7.8 RBC 5.16 Hgb 15.4 Hct 44.3 MCV 85.9 MCH 29.8 MCHC 34.8 RDW 13.2 Plt Count 212 MPV 11.1 Immature Gran % (Auto) 0.4 Neut % (Auto) 66.6 Lymph % (Auto) 25.5 [place] % (Auto) 5.9 Eos % (Auto) 1.2 Baso % (Auto) 0.4 Lymph # (Auto) 2.0 [place] # (Auto) 0.5 Eos # (Auto) 0.1 Baso # (Auto) 0.0 Abs Immat Gran (auto) 0.03 Absolute Neuts (auto) 5.2 Absolute Nucleated RBC 0.000 Nucleated RBC % (auto) 0.0 Smear Tech's Comments VERIFIED Sodium 143 Potassium 4.0 Chloride 110 H Carbon Dioxide 23 Anion Gap 14 BUN 14 Creatinine 0.72 Estim Creat Clear Calc 117.1 Estimated GFR > 60 Random Glucose 94 Calcium 9.4 Total Bilirubin 0.3 AST 22 ALT 26 Alkaline Phosphatase 96 Total Protein 7.7 Albumin 4.8 Beta HCG, Quant < 2 Urine Color Yellow Urine Appearance Cloudy Urine pH 7.0 Ur Specific [place] 1.020 Urine Protein Negative Urine Glucose (UA) Negative Urine Ketones Trace Urine Blood Negative Urine Nitrite Positive H Ur Leukocyte Esterase Small (1+) H Urine RBC 0-2 Urine WBC 21-50 H Ur Squamous Epith Cells 6-10 Urine Bacteria 4+ Hyaline Casts 3-5 Urine Test NEGATIVE Salicylates < 5.0 L Urine Opiates Screen Not Detected Ur Buprenorphine Scrn Not Detected Ur Oxycodone Screen Not Detected Urine Methadone Screen Not Detected Urine Fentanyl Screen Not Detected Acetaminophen < 3 Ur Barbiturates Screen Not Detected Ur Phencyclidine Scrn Not Detected Ur Amphetamines Screen Not Detected U Benzodiazepines Scrn Not Detected Urine Cocaine Screen Not Detected U Marijuana (THC) Screen Not Detected Meds/Allergies Meds Home Medications ?Medication ?Instructions ?Recorded ?Confirmed ?Type No Known Home Meds 03/03/24 03/03/24 History Allergies Allergies Allergy/AdvReac Type Severity Reaction Status Date / Time Penicillins AdvReac Severe Anaphylaxis Verified 03/03/24 07:19 Mental Status Exam Mental Status Exam Patient Appearance: Appropriate Patient Orientation: Person, Place, Time and Situation Level of Consciousness: Alert Patient Behavior: Appropriate, Talkative, Cooperative, Anxious and Good Eye Contact Mood Description: Anxious and Apprehensive Affect Description: Anxious and Apprehensive Patient Cognition Impaired: No Ability to Follow Directions: Good Speech Pattern: Spontaneous Speech Memory Description: Intact Hallucinations: None Delusions: Not Present Thought Process: Intact and Goal Oriented Thought Content: positive for Intact, positive for Goal Oriented and positive for Suicidal Ideation (denies) Depressive Symptoms: Thoughts of /Suicide (denies) Judgement: Good Assessment & Plan Assessment & Plan (1) Anxiety: Status: Acute Code(s): F41.9 - Anxiety disorder, unspecified (2) Mixed emotional features as adjustment reaction: Status: Acute Code(s): F43.29 - Adjustment disorder with other symptoms Plan Mixed adjustment reaction, anxiety. Plan: Jean Yap has assisted pt to secure an appt with [facility] for 03/10/24. Pt will attend Bridge Program with Brenda Amaro APRN on 03/25/24. Pt will discharge with and will call/return as needed. She was given contact numbers to call. Patient educated on: therapeutic strategies Reason for continued inpatient stay Substantial Risk for: stable for discharge Statement Statement: I have reviewed the history and physical and performed a pertinent examination on my patient. No changes have occurred unless specified. If the History and Physical was not performed prior to admission, the Hospitalist's service will be consulted for completing the admission physical. Time Spent With Patient Time: Total time managing care of this patient today ____ minutes.
== END 2024-03-04 13:08 | disposition home or self-care (01) | DRG 882 ==
LOC: HO.ED 09:24 → HO.PM5 15:14
PROVIDERS: Admitting Provider Clinical Nurse Specialist Psychiatric/Mental Health, Adult; Emergency Provider Emergency Medicine; Visit Provider Clinical Nurse Specialist Psychiatric/Mental Health, Adult
DX: F43.25 Adjustment disorder with mixed disturbance of emotions and conduct (principal); R45.851 Suicidal ideations; F41.9 Anxiety disorder, unspecified
CPT/HCPCS: 36415; 80053; 80143; 80179; 80307; 81001; 81025; 84702; 85025; 87086; 87088; 87186; 99285

== ENCOUNTER → 2024-03-03 15:07 | Outpatient (BNV) | payer OTHER, SELFPAY | PROVIDERS: Admitting Provider Clinical Nurse Specialist Psychiatric/Mental Health, Adult; Emergency Provider Emergency Medicine; Visit Provider Clinical Nurse Specialist Psychiatric/Mental Health, Adult | DX: F41.9 Anxiety disorder, unspecified (principal); F43.29 Adjustment disorder with other symptoms | CPT/HCPCS: 90792; 99499 ==